=== PATIENT | female | born 2000 | race African-American/Black ===

== ENCOUNTER 2022-03-25 00:23 | Inpatient (IN) | payer OTHER ==
[~2022-03-25] VITALS: Ht 193 cm; Wt 120.2 kg
--- NOTE | 2022-03-25 03:44 | NUR ---
COVID 19 SWAB DONE TO BOTH NARES AND SENT TO IN HOUSE LAB.
--- NOTE | 2022-03-25 11:33 | PR ---
[facility] [address] [facility] [place], [place] [address] Signed Progress Notes IP Datetime Report Generated by CPN: 03/25/2022 11:33 PROGRESS NOTES: [id number] Impression: Reassuring Heart Rate Procedures: Sterile Vag Exam Plan: Augmentation VITAL SIGNS: [id number] Vital Signs: Reviewed; Within Normal Limits EXAM: [id number] Dilatation: 6.5 Effacement: 90 Station: -2 MEMBRANES: [id number] Membranes Status: Ruptured Comments: Epidural re-bolused, pt comfortable again. Cervical exam unchanged, start low-dose pitocin as previously discussed. Risks/ benefits/ alternatives to pitocin discussed with pt and she elected to proceed. FETUS A: [id number] FHR Baseline: 125 Variability: Moderate 6-25bpm Accelerations: 15X15 Decelerations: None FHR Category: Category I Presentation: Vertex Comments on Fetus A: no evidence of acidemia FETUS B: [id number] Signing Physician: Austin Chan DO Copies: ~ *Electronically Signed* 03/25/22 1133 AUSTIN CHAN DO PATIENT NAME: BERNARDO JAIN PROGRESS NOTE DATE OF : 00 PHYSICIAN: AUSTIN CHAN DO RPT #: [id number] REPORT IS CONFIDENTIAL AND NOT TO BE RELEASED WITHOUT AUTHORIZATION
--- NOTE | 2022-03-26 11:29 | PR ---
[facility] [address] [place], [place] [address] Signed PP Progress Notes Datetime Report Generated by CPN: 03/26/2022 11:29 SUBJECTIVE: [id number] Pain: Within Normal Limits Nausea/Vomiting: Denies Flatus: Yes Bowel Movement: Yes Vital Signs: [id number] Vital Signs: Reviewed; Within Normal Limits Notable Details: isolated elevated BP, non-persistent, otherwise normotensive. EXAM: Ongoing Cardiovascular: Normal Respiratory: Normal Abdomen/Uterus: Normal Lochia: Normal Breasts: Normal Extremities: Normal Progress: Normal Exam Comments: NAD, standing at bedside No dyspnea/ retractions RRR Abd SNTND, FFBU Trace edema, neg Mira's BL IMPRESSION/PLAN/PROCEDURES: [id number] Impression: Normal Progression Plan: Continue Present Management; Discharge Progress Notes: Pt is a 21 yo PPD#1 s/p -bilateral labial lacerations repaired -pt doing well , ambulating/ voiding/ tolerating regular diet/ +BM. Lochia light, pain well-controlled with motrin. without difficulty. Requesting DC to home today. Signing Physician: Austin Chan DO Copies: ~ *Electronically Signed* 03/26/22 1129 AUSTIN CHAN DO PATIENT NAME: BERNARDO JAIN PROGRESS NOTE DATE OF : 00 PHYSICIAN: AUSTIN CHAN #: [id number] REPORT IS CONFIDENTIAL AND NOT TO BE RELEASED WITHOUT AUTHORIZATION
== END 2022-03-26 15:30 | disposition home or self-care (01) | DRG 806 ==
LOC: FBCO 00:23 → FBC 01:58
PROVIDERS: ADMIT Obstetrics & Gynecology; ATTEND Obstetrics & Gynecology
PROC: 10E0XZZ Delivery of Products of Conception, External Approach (ICD-10-PCS; principal; 2022-03-25)
PROC: 10907ZC Drainage of Amniotic Fluid, Therapeutic from Products of Conception, Via Natural or Artificial Opening (ICD-10-PCS; 2022-03-25)
PROC: 00HU33Z Insertion of Infusion Device into Spinal Canal, Percutaneous Approach (ICD-10-PCS; 2022-03-25)
PROC: 3E0R3BZ Introduction of Anesthetic Agent into Spinal Canal, Percutaneous Approach (ICD-10-PCS; 2022-03-25)
PROC: 0UQMXZZ Repair Vulva, External Approach (ICD-10-PCS; 2022-03-25)
DX: O99.214 Obesity complicating childbirth (principal); O98.52 Other viral diseases complicating childbirth; Z37.0 Single live birth; O70.0 First degree perineal laceration during delivery; Z3A.39 39 weeks gestation of pregnancy; Z67.40 Type O blood, Rh positive; B00.9 Herpesviral infection, unspecified; O99.344 Other mental disorders complicating childbirth; F41.8 Other specified anxiety disorders; O99.324 Drug use complicating childbirth; F12.90 Cannabis use, unspecified, uncomplicated; Z20.822 Contact with and (suspected) exposure to COVID-19; Z87.891 Personal history of nicotine dependence
CPT/HCPCS: 36415; 85027; 86850; 86900; 86901; 87502; A9270; C9803; J2001; J2405; J2590; J2795; J3010; J7121; U0003

== ENCOUNTER 2023-08-28 08:19 | Inpatient (IN) | payer OTHER ==
[~2023-08-28] VITALS: Ht 193 cm; Wt 127.0 kg
[2023-08-28] MEDS ORDERED: CALCIUM CARBONATE 500 MG CHEW PO PRN ×2 (09:00→17:15)
[2023-08-28] MEDS ORDERED: ondansetron HCL 4 MG/2 ML VIAL IV PRN (09:00)
[2023-08-28] MEDS ORDERED: LACTATED RINGER'S 1,000 ML IV SCH (09:00)
[2023-08-28] MEDS ORDERED: MAGNESIUM HYDROXIDE/AL HYDROX 30 ML CUP PO PRN ×2 (09:00→17:15)
[2023-08-28] MEDS ORDERED: LACTATED RINGER'S 1,000 ML IV PRN (09:00)
[2023-08-28] MEDS ORDERED: OXYTOCIN/DEXTROSE 5% 20 UNITS/100 ML BAG IV SCH (09:00)
[2023-08-28] MEDS ORDERED: fentaNYL citrate 100 MCG/2 ML VIAL IV PRN (09:00)
[2023-08-28 09:10] LABS: HEMATOCRIT 34.3 % (35.0-50.0); HEMOGLOBIN 10.8 g/dL (12.0-18.0); MCH 24.3 (27-36); MCHC 31.5 g/dl (30-36); MCV 77.3 fl (81-99); RBC 4.43 M/ul (4.3-5.7); RDW 17.1 (10.5-15.0)
[2023-08-28 09:17] VITALS: BP 131/76
[2023-08-28 09:17] LABS: AMPHETAMINES, URINE NEGATIVE (NEGATIVE); BARBITURATES, URINE NEGATIVE (NEGATIVE); BENZODIAZEPINE, URINE NEGATIVE (NEGATIVE); BUPRENORPHINE, URINE NEGATIVE (NEGATIVE); CANNABINOID, URINE POSITIVE (NEGATIVE); COCAINE, URINE NEGATIVE (NEGATIVE); ECSTASY, URINE NEGATIVE (NEGATIVE); FENTANYL, URINE NEGATIVE (NEGATIVE); METHADONE, URINE NEGATIVE (NEGATIVE); OPIATES, URINE NEGATIVE (NEGATIVE); OXYCODONE, URINE NEGATIVE (NEGATIVE); PHENCYCLIDINE, URINE NEGATIVE (NEGATIVE)
[2023-08-28 09:46] LABS: ABO O; ANTIBODY SCREEN NEGATIVE; RH POSITIVE
--- NOTE | 2023-08-28 11:58 | PR ---
[facility] [address] [place], [place] [address] Signed Progress Notes IP Datetime Report Generated by CPN: 08/28/2023 11:58 PROGRESS NOTES: [id number] Impression: Normal Progression of Labor; Reassuring Heart Rate Procedures: Artificial ROM; Sterile Vag Exam Plan: Continue Present Management; Anticipate Vaginal Delivery Informed Consent Obtain: Vaginal Delivery VITAL SIGNS: [id number] Vital Signs: Reviewed; Within Normal Limits EXAM: [id number] Dilatation: 6.0 Effacement: 70 Station: -2 Contractions: Irregular MEMBRANES: [id number] Comments: Pt seen and examined. Doing well Desires AROM which was easily performed after verbal consent and ensuring vertex well applied. Clear fluid. Vulvar exam performed and no lesions noted. Reviewed anticipated course of labor / delivery FETUS A: [id number] FHR Baseline: 130 Variability: Moderate 6-25bpm Accelerations: 15X15 Decelerations: None FHR Category: Category I Presentation: Vertex Comments on Fetus A: No evidence of metabolic acidosis FETUS B: [id number] Signing Physician: Liz Hernandez DO Copies: ~ *Electronically Signed* 08/28/23 6009 LIZ HERNANDEZ (HARINDER) DO PATIENT NAME: BERNARDO JAIN PROGRESS NOTE DATE OF : 00 PHYSICIAN: LIZ HERNANDEZ) DO RPT #: [id number] REPORT IS CONFIDENTIAL AND NOT TO BE RELEASED WITHOUT AUTHORIZATION
--- NOTE | 2023-08-28 13:41 | PR ---
[facility] [address] [facility] [place], [place] [address] Signed Progress Notes IP Datetime Report Generated by CPN: 08/28/2023 13:41 PROGRESS NOTES: [id number] Impression: Normal Progression of Labor; Reassuring Heart Rate Procedures: Sterile Vag Exam Plan: Continue Present Management; Anticipate Vaginal Delivery Informed Consent Obtain: Vaginal Delivery VITAL SIGNS: [id number] Vital Signs: Reviewed; Within Normal Limits EXAM: [id number] Dilatation: 7.0 Effacement: 80 Station: -2 Contractions: q 2-3 painful MEMBRANES: [id number] Comments: Pt seen and examined. Very uncomfortable w/ contractions. Nitrous not improving pain and considering epidural. No other questions or concerns FETUS A: [id number] FHR Baseline: 130 Variability: Moderate 6-25bpm Accelerations: 15X15 Decelerations: None FHR Category: Category I Presentation: Vertex Comments on Fetus A: No evidence of metabolic acidosis FETUS B: [id number] Signing Physician: Liz Hernandez DO Copies: ~ *Electronically Signed* 08/28/23 1341 LIZ HERNANDEZ (HARINDER) DO PATIENT NAME: BERNARDO JAIN ZACH PROGRESS NOTE DATE OF : 00 PHYSICIAN: LIZ HERNANDEZ (HARINDER) DO RPT #: [id number] REPORT IS CONFIDENTIAL AND NOT TO BE RELEASED WITHOUT AUTHORIZATION
[2023-08-28] MEDS ORDERED: ROPIVACAINE 0.2% 200 ML BAG ONE (14:09)
[2023-08-28] MEDS ORDERED: dexmedeTOMIDine HCl 200 MCG/2 ML VIAL ONE (14:48)
[2023-08-28] MEDS ORDERED: LIDOCAINE HCL 2% 5 ML SDV ONE (14:48)
[2023-08-28] MEDS ORDERED: ROPIVACAINE 0.2% 200 ML BAG EPIDURAL SCH (16:30)
[2023-08-28] MEDS ORDERED: ePHEDrine sulfate 5 MG/ML SYRINGE IV PRN (16:30)
[2023-08-28] MEDS ORDERED: LACTATED RINGER'S 500 ML IV PRN (16:30)
[2023-08-28] MEDS ORDERED: LACTATED RINGER'S 2,000 ML IV ONE (16:30)
[2023-08-28] MEDS ORDERED: OXYTOCIN/0.9 % SODIUM CHLORIDE 500 ML IV SCH (17:15)
[2023-08-28] MEDS ORDERED: MAGNESIUM HYDROXIDE 30 ML UDC PO PRN (17:15)
[2023-08-28] MEDS ORDERED: BENZOCAINE/LANOLIN/ALOE VERA 60 ML AEROSOL TOP PRN (17:15)
[2023-08-28] MEDS ORDERED: HYDROCODONE/ACETA 5/325 TAB PO PRN (17:15)
[2023-08-28] MEDS ORDERED: IBUPROFEN 600 MG TAB PO PRN (17:15)
[2023-08-28] MEDS ORDERED: ACETAMINOPHEN 325 MG TAB PO PRN (17:15)
[2023-08-28] MEDS ORDERED: OXYCODONE HCL 5 MG TAB PO PRN (17:15)
[2023-08-28] MEDS ORDERED: OXYCODONE/APAP 5/325 TAB PO PRN (17:15)
[2023-08-28] MEDS ORDERED: HYDROCORTISONE ACETATE 25 MG SUPP PR PRN (17:15)
[2023-08-28] MEDS ORDERED: WITCH HAZEL/GLYCERIN 1 EA PAD TOP PRN (17:15)
[2023-08-28] MEDS ORDERED: SENNOSIDES/DOCUSATE 1 EA TAB PO SCH (21:00)
[2023-08-29 05:25] LABS: HEMATOCRIT 33.3 % (35.0-50.0); HEMOGLOBIN 10.4 g/dL (12.0-18.0); MCH 24.3 (27-36); MCHC 31.3 g/dl (30-36); MCV 77.7 fl (81-99); RBC 4.29 M/ul (4.3-5.7); RDW 16.7 (10.5-15.0)
--- NOTE | 2023-08-29 07:39 | PR ---
[facility] [address] [place], [place] [address] Signed PP Progress Notes Datetime Report Generated by CPN: 08/29/2023 07:39 SUBJECTIVE: [id number] Pain: Within Normal Limits Nausea/Vomiting: Denies Flatus: Yes Bowel Movement: Yes Vital Signs: [id number] Vital Signs: Reviewed; Within Normal Limits Cardiovascular: Not Done Respiratory: Not Done Abdomen/Uterus: Normal Lochia: Normal Vulva/Perineum: Not Done Breasts: Not Done CVA Tenderness: Not Done Extremities: Normal Incision: Not Applicable Progress: Normal IMPRESSION/PLAN/PROCEDURES: [id number] Impression: Normal Progression Plan: Discharge Procedures: None Progress Notes: S: 22 yo s/p vaginal delivery. PPD#1. Doing well. Denies WILKERSON, CP, SOB, F/C, N/V, RUQ pain, changes in vision, vaginal discharge. Tolerating regular diet, ambulating, voiding on own, pain controlled. O: AFVSS Abd: Soft, non-tender. Fundus firm, 3 fingers below umbilicus. Musc: SERRANO. No C/C. Minimal edema. A/P: 22 yo s/p vaginal delivery. PPD#1. Doing well. Meeting all hospital milestones. Will discharge home today. Signing Physician: Diana Layton MD Copies: ~ *Electronically Signed* 08/29/23 0739 DIANA LAYTON MD PATIENT NAME: BERNARDO JAIN PROGRESS NOTE DATE OF : 00 PHYSICIAN: DIANA LAYTON MD RPT #: [id number] REPORT IS CONFIDENTIAL AND NOT TO BE RELEASED WITHOUT AUTHORIZATION
== END 2023-08-29 16:30 | disposition home or self-care (01) | DRG 806 ==
LOC: FBCO 08:19 → FBC 08:34
PROVIDERS: ADMIT Obstetrics & Gynecology; ATTEND Obstetrics & Gynecology
PROC: 10E0XZZ Delivery of Products of Conception, External Approach (ICD-10-PCS; principal; 2023-08-28)
PROC: 3E0R3BZ Introduction of Anesthetic Agent into Spinal Canal, Percutaneous Approach (ICD-10-PCS; 2023-08-28)
PROC: 00HU33Z Insertion of Infusion Device into Spinal Canal, Percutaneous Approach (ICD-10-PCS; 2023-08-28)
PROC: 10907ZC Drainage of Amniotic Fluid, Therapeutic from Products of Conception, Via Natural or Artificial Opening (ICD-10-PCS; 2023-08-28)
PROC: 0HQ9XZZ Repair Perineum Skin, External Approach (ICD-10-PCS; 2023-08-28)
DX: O76 Abnormality in fetal heart rate and rhythm complicating labor and delivery (principal); O98.32 Other infections with a predominantly sexual mode of transmission complicating childbirth; Z37.0 Single live birth; O70.0 First degree perineal laceration during delivery; Z3A.39 39 weeks gestation of pregnancy; A60.09 Herpesviral infection of other urogenital tract
CPT/HCPCS: 01960; 36415; 59025; 80307; 85027; 86850; 86900; 86901; A9270; G0463; J2001; J2590; J7121